=== PATIENT | female | born 1955 | race Caucasian/White ===

== ENCOUNTER → 2018-10-20 16:59 | Outpatient (CLI) | payer OTHER, SELFPAY ==
[2018-10-20 15:18] VITALS: BMI 28.0
[2018-10-23 13:14] LABS: HPV APTIMA, High Risk Negative (Negative)
== END ==
PROVIDERS: Family Provider Internal Medicine; PCP Internal Medicine; Referring Provider Obstetrics & Gynecology; Visit Provider Obstetrics & Gynecology
DX: Z12.4 Encounter for screening for malignant neoplasm of cervix (principal)
CPT/HCPCS: 87624; 88175; G0145

== ENCOUNTER → 2018-10-26 13:08 | Outpatient (CLI) | payer OTHER, SELFPAY ==
[2018-10-20 15:18] VITALS: BMI 28.0
--- NOTE | 2018-10-26 13:13 | RAD_ITS ---
STUDY: X-RAY - LEFT FOOT CLINICAL: Female, 63 years old. Left-sided foot pain across metatarsals. TECHNIQUE: 3 view(s) of the foot. COMPARISON: None. FINDINGS: There is a posterior calcaneal enthesophyte and plantar calcaneal spur. Tarsal bones have a grossly normal appearance. There are mild degenerative changes of the intertarsal articulations. There is deformity of the first metatarsal that may be the result of previous surgery. The second, third, fourth and fifth metatarsals have a normal appearance. There is degenerative arthrosis of the metatarsophalangeal joint of the hallux . Normal tibial and fibular sesamoid bones. Normal interphalangeal joint of the great toe. Normal phalanges of the great toe. Normal second through fifth metatarsophalangeal joints. Normal interphalangeal joints and phalanges of the lesser toes. The soft tissue structures are unremarkable. There is no demonstrated fracture. RAD/Foot min 3 Views IMPRESSION: 1. Calcaneal spurs. 2. Postoperative changes of the first metatarsal. Electronically Signed: Guillermina Anaya MD at 17:45 EDT , Service support ,
== END ==
PROVIDERS: Family Provider Internal Medicine; PCP Internal Medicine; Referring Provider Internal Medicine; Visit Provider Internal Medicine
DX: M79.672 Pain in left foot (principal)
CPT/HCPCS: 73630

== ENCOUNTER → 2018-11-16 14:33 | Outpatient (CLI) | payer OTHER, SELFPAY ==
[2018-10-20 15:18] VITALS: BMI 28.0
--- NOTE | 2018-11-16 14:37 | BI_ITS ---
MAMMOGRAPHY - BILATERAL SCREENING REASON FOR EXAM: Female, 63 years old. Routine annual screening examination. PERTINENT HISTORY: Aunt with breast cancer. TECHNIQUE: Digital bilateral breast reed (3D mammographic acquisition) in the CC and MLO projections. 2-D mediolateral oblique (MLO) and craniocaudad (CC) views of both breasts were obtained. CAD: Full Field Digital Mammography with Computer Added Detection was performed. COMPARISON: Comparison is made with prior operative examination dated August 02, 2016 and July 27, 2015. FINDINGS: Breast Composition: There are scattered areas of fibroglandular density. There are no dominant masses or suspicious calcifications. Stable small bilateral axillary lymph nodes. No other significant abnormalities are identified. There has been no significant change since the prior study. BI/SCREEN MAMM (CAD) W/REED BILAT IMPRESSION: Stable bilateral screening mammogram. Yearly follow-up mammogram recommended. (A) ASSESSMENT CATEGORY: BIRADS Category 2: Benign. A letter regarding these results will be sent to the patient by the facility within 30 days. Approximately 10% of breast cancers are not detected by mammography. A normal mammogram should not delay biopsy of a clinically suspicious abnormality. [id number] Electronically Signed: Mic Benavides, at 9:20 EDT , Service support ,
== END ==
PROVIDERS: Family Provider Internal Medicine; PCP Internal Medicine; Referring Provider Obstetrics & Gynecology; Visit Provider Obstetrics & Gynecology
DX: Z12.31 Encounter for screening mammogram for malignant neoplasm of breast (principal)
CPT/HCPCS: 77063; 77067

== ENCOUNTER → 2018-11-30 | Outpatient (CLI) | payer OTHER, SELFPAY ==
[2018-10-20 15:18] VITALS: BMI 28.0
--- NOTE | 2018-11-30 08:15 | RAD_ITS ---
STUDY: AIR-CONTRAST UPPER GI SERIES AND SMALL BOWEL FOLLOW-THROUGH EXAMINATION. REASON FOR EXAM: Female, 63 years old. Epigastric pain. One year history of diarrhea. FLUOROSCOPY TIME (if supplied): (1:15) minutes/seconds TECHNIQUE: The patient ingested barium. Multiple images of the esophagus, stomach and duodenum were obtained. Following this, a small bowel follow-through examination was performed. COMPARISON: None. FINDINGS: The esophagus is unremarkable. There is no evidence of of esophageal obstruction. No mass lesion is seen. No evidence of gastroesophageal reflux. The stomach and duodenum are unremarkable. No evidence of ulceration. A small bowel follow-through examination was obtained. The transit time is normal. No evidence of intrinsic or extrinsic small bowel disease. The terminal ileum is unremarkable. RAD/Upper GI/w Small Bowel IMPRESSION: Unremarkable examination. Electronically Signed: Mic Benavides, at 14:11 EDT , Service support ,
== END | disposition home or self-care (01) ==
LOC: RAD 08:14
PROVIDERS: Family Provider Internal Medicine; PCP Internal Medicine; Referring Provider Nurse Practitioner; Visit Provider Nurse Practitioner
DX: R10.13 Epigastric pain (principal); R00.1 Bradycardia, unspecified
CPT/HCPCS: 74249; 93225; 93226

== ENCOUNTER → 2018-12-23 20:20 | Outpatient (CLI) | payer OTHER, SELFPAY ==
[2018-10-20 15:18] VITALS: BMI 28.0
== END ==
PROVIDERS: Family Provider Internal Medicine; PCP Internal Medicine; Referring Provider Nurse Practitioner; Visit Provider Nurse Practitioner
DX: G47.10 Hypersomnia, unspecified (principal)
CPT/HCPCS: 95810

== ENCOUNTER → 2019-11-25 | Outpatient (CLI) | payer MEDICARE, SELFPAY ==
[2018-10-20 15:18] VITALS: BMI 28.0
--- NOTE | 2019-11-25 11:28 | BI_ITS ---
MAMMOGRAPHY - BILATERAL SCREENING REASON FOR EXAM: Female, 64 years old. Routine annual screening examination. PERTINENT HISTORY: Aunt with breast cancer. TECHNIQUE: Digital bilateral breast reed (3D mammographic acquisition) in the CC and MLO projections. 2-D mediolateral oblique (MLO) and craniocaudad (CC) views of both breasts were obtained. CAD: Full Field Digital Mammography with Computer Added Detection was performed. COMPARISON: Comparison is made with prior study dated November 16, 2018 and January 11, 2011. FINDINGS: Breast Composition: There are scattered areas of fibroglandular density. There are no dominant masses or suspicious calcifications. Stable benign-appearing bilateral axillary lymph nodes. No other significant abnormalities are identified. There has been no significant change since the prior study. BI/SCREEN MAMM (CAD) W/REED BILAT IMPRESSION: Stable bilateral screening mammogram. Yearly follow-up mammogram recommended. (A) ASSESSMENT CATEGORY: BIRADS Category 2: Benign. A letter regarding these results will be sent to the patient by the facility within 30 days. Approximately 10% of breast cancers are not detected by mammography. A normal mammogram should not delay biopsy of a clinically suspicious abnormality. [id number] Electronically Signed: Mic Benavides, at 12:49 EDT , Service support ,
== END | disposition home or self-care (01) ==
LOC: OPBI 11:28
PROVIDERS: PCP Internal Medicine; Referring Provider Obstetrics & Gynecology; Visit Provider Obstetrics & Gynecology
DX: Z12.31 Encounter for screening mammogram for malignant neoplasm of breast (principal)
CPT/HCPCS: 77063; 77067

== ENCOUNTER 2020-06-02 05:45 | Day surgery (SDC) | payer MEDICARE, SELFPAY ==
[2018-10-20 15:18] VITALS: BMI 28.0
[2020-06-02 06:10] VITALS: BP 120/80; PULSE 60; RESP 16; TEMP 36.6; O2SAT 98; BMI 30.2
[2020-06-02] MEDS: Lidocaine 1% (20 ml mdv) 20 ML Vial (07:26)
[2020-06-02] MEDS: Bupivacaine Mpf 0.5% 30 ML VIAL (07:26)
--- NOTE | 2020-06-02 08:05 | PRO.PCM_ITS ---
Procedure Report Date of Procedure: 06/02/20 Preoperative diagnosis: Right thumb and ring finger triggering Postoperative diagnosis: Same Operation: Release A1 davie right thumb and ring trigger finger Surgeon: Dr. Ming Anaya Grades 1 [employer] 5 Teacher: None Anesthesia: Local Complications: None EBL: Minimal Indications for surgery: Patient has been diagnosed with involved trigger fingers. Due to persistent symptoms despite adequate nonoperative treatment they wish to have surgery. Appropriate informed consent was obtained and signed. Findings: Patient had stenosis involving the A1 davie over the flexor tendon at the involved digit. They underwent complete release of the A1 davie. Triggering was no longer present actively or passively Procedure: After obtaining appropriate informed consent patient was taken to the OR. Patient was transferred to the OR table. Patient was given a local anesthetic at the involved finger sites with a combination of 1% lidocaine and quarter percent Marcaine. A total of 14 cc was ultimately utilized between the involved fingers. Well-padded tourniquet was applied to the operative upper extremity. Limb was exsanguinated. Tourniquet applied to 250 mmHg. 1-1.5 cm transverse incision was made over the proximal aspect of the A1 davie of the involved digit. Dissection through skin subcutaneous tissue brought me down onto the flexor tendon sheath. Proximal extent of the A1 davie was identified. Knife and scissors were used to fully release the A1 davie. Fibrinous tissue proximal to the site was also released under direct visualization. Once this was done flexor tendon was identified to move freely through the site. Patient actively and passively flexed and extended the involved digit without triggering. Tourniquet was let down. Bleeding controlled with cautery. Wound was thoroughly irrigated. Skin edges reapproximated with a 5-0 nylon. Sterile bandage was applied. Right thumb and ring finger treated in above fashion Patient was taken the operating room to recovery room. Patient will be discharged. Ice and elevation. Appropriate pain medication prescribed. This note was generated with [employer] dictation software. It may contain incorrect words, spelling, and punctuation that were not noted in checking the note before signing.
[2020-06-02 08:15] VITALS: BP 134/89; PULSE 58; RESP 16; TEMP 36.2; O2SAT 100
== END 2020-06-02 08:33 | disposition home or self-care (01) ==
LOC: SDC 05:45 → AC 05:46
PROVIDERS: PCP Internal Medicine; Referring Provider Orthopaedic Surgery; Visit Provider Orthopaedic Surgery
PROC: (CPT 26055; principal; 2020-06-02 07:15)
DX: M65.311 Trigger thumb, right thumb (principal); M65.341 Trigger finger, right ring finger; E66.3 Overweight; Z68.28 Body mass index [BMI] 28.0-28.9, adult; Z20.828 Contact with and (suspected) exposure to other viral communicable diseases
CPT/HCPCS: 26055 ×2; 87426; C9803; J7120

== ENCOUNTER → 2020-12-04 09:48 | Outpatient (CLI) | payer MEDICARE, SELFPAY ==
--- NOTE | 2020-12-04 09:51 | BI_ITS ---
MAMMOGRAPHY - BILATERAL SCREENING REASON FOR EXAM: Female, 65 years old. Routine annual screening examination. PERTINENT HISTORY: Aunt with breast cancer. TECHNIQUE: Digital bilateral breast reed (3D mammographic acquisition) in the CC and MLO projections. 2-D mediolateral oblique (MLO) and craniocaudad (CC) views of both breasts were obtained. CAD: Full Field Digital Mammography with Computer Added Detection was performed. COMPARISON: Comparison is made with prior study dated 11/25/2019 and 11/16/2018. FINDINGS: Breast Composition: The breasts are almost entirely fatty. There are no dominant masses or suspicious calcifications. Stable benign-appearing bilateral axillary lymph nodes. No other significant abnormalities are identified. There has been no significant change since the prior study. BI/SCRN MAMM (CAD)W/REED BILAT IMPRESSION: Stable bilateral screening mammogram. Yearly follow-up mammogram recommended. (A) ASSESSMENT CATEGORY: BIRADS Category 2: Benign. A letter regarding these results will be sent to the patient by the facility within 30 days. Approximately 10% of breast cancers are not detected by mammography. A normal mammogram should not delay biopsy of a clinically suspicious abnormality. [id number] Electronically Signed: Mic Benavides MD at 11:08 EDT , Service support ,
== END ==
PROVIDERS: PCP Internal Medicine; Referring Provider Obstetrics & Gynecology; Visit Provider Obstetrics & Gynecology
DX: Z12.31 Encounter for screening mammogram for malignant neoplasm of breast (principal)
CPT/HCPCS: 77063; 77067

== ENCOUNTER → 2021-03-30 09:54 | Outpatient (CLI) | payer MEDICARE, SELFPAY ==
--- NOTE | 2021-03-30 09:55 | ECHOD_ITS ---
Reason For Study: ABN EKG Procedure This was a 2D Doppler, Color Flow transthoracic echocardiogram. Exam performed in department. Left Ventricle Normal LV size. Left ventricular systolic function is normal. The estimated ejection fraction is 60 %. No regional wall motion abnormalities noted. Right Ventricle Normal RV size. Normal systolic function. Atria Normal left atrium. Normal right atrium. Mitral Valve Normal mitral valve. Mild (1+) eccentric mitral valve insufficiency. Tricuspid Valve Normal tricuspid valve. Aortic Valve Trisinus/trileaflet aortic valve. Pulmonic Valve Normal pulmonic valve. Great Vessels Normal aortic root. The pulmonary artery is normal size. Normal inferior vena cava. Pericardium/Pleural No pericardial effusion. MMode/2D Measurements & Calculations LVIDd: 4.9 cm IVSd: 0.96 cm Ao root diam: 2.9 cm LVIDs: 3.3 cm LVPWd: 1.1 cm RVDd: 3.5 cm FS: 32.2 % LAV(MOD-bp): 53.1 ml LA A4 area: 14.8 cm2 LA dimension(2D): 3.0 cm LAV(MOD-bp) Indexed: 29.9 ml/m2 LAV(MOD-sp2): 54.8 ml LAV(MOD-sp4): 41.5 ml RA A4 area: 15.3 cm2 Doppler Measurements & Calculations MV E max kolby: 54.9 cm/sec Lat Peak E' Kolby: 6.4 cm/sec Med Peak E' Kolby: 5.8 cm/sec MV A max kolby: 44.9 cm/sec E/E' lat: 8.6 E/E' med: 9.5 MV E/A: 1.2 Ao V2 max: 125.6 cm/sec LV V1 max: 107.2 cm/sec PA V2 max: 98.2 cm/sec Ao max P.3 mmHg LV V1 max P.6 mmHg ECHO/Echo Complete Interpretation Summary Normal LV size. Left ventricular systolic function is normal. The estimated ejection fraction is 60 %. Structurally normal valves. Ordering Physician: Mikala Vallecillo Referring Physician: Mikala Vallecillo Performed By: Kayley Rowe RDCS, RVT
== END ==
PROVIDERS: PCP Internal Medicine; Referring Provider Internal Medicine; Visit Provider Internal Medicine
DX: R94.31 Abnormal electrocardiogram [ECG] [EKG] (principal)
CPT/HCPCS: 93306

== ENCOUNTER → 2021-12-13 | Outpatient (CLI) | payer MEDICARE, SELFPAY ==
--- NOTE | 2021-12-13 10:34 | BI_ITS ---
MAMMOGRAPHY - BILATERAL SCREENING REASON FOR EXAM: Female, 66 years old. Routine annual screening examination. PERTINENT HISTORY: Aunt with breast cancer. TECHNIQUE: Digital bilateral breast reed (3D mammographic acquisition) in the CC and MLO projections. 2-D mediolateral oblique (MLO) and craniocaudad (CC) views of both breasts were obtained. CAD: Full Field Digital Mammography with Computer Added Detection was performed. COMPARISON: Comparison is made with prior study dated 08/06/2020 and 11/25/2019. FINDINGS: Breast Composition: There are scattered areas of fibroglandular density. There are no dominant masses or suspicious calcifications. Stable small benign-appearing bilateral axillary lymph nodes. No other significant abnormalities are identified. There has been no significant change since the prior study. BI/SCRN MAMM (CAD)W/REED BILAT IMPRESSION: Stable bilateral screening mammogram. Yearly follow-up mammogram recommended. (A) ASSESSMENT CATEGORY: BIRADS Category 2: Benign. A letter regarding these results will be sent to the patient by the facility within 30 days. Approximately 10% of breast cancers are not detected by mammography. A normal mammogram should not delay biopsy of a clinically suspicious abnormality. [id number] Electronically Signed: Mic Benavides MD at 11:54 EDT ,
== END | disposition home or self-care (01) ==
LOC: OPBI 10:32
PROVIDERS: PCP Internal Medicine; Visit Provider Obstetrics & Gynecology
DX: Z12.31 Encounter for screening mammogram for malignant neoplasm of breast (principal)
CPT/HCPCS: 77063; 77067

== ENCOUNTER → 2022-05-13 | Outpatient (CLI) | payer MEDICARE, SELFPAY ==
[2022-05-13 18:16] LABS: Absolute Lymphocyte Count 1.14 X10^3/uL (0.83-4.51); Absolute Neutrophil Count 1.8 X10^3/uL (2.0-7.7); Basophil# 0.03 X10^3/uL; Basophil% 0.9 % (0-1); Eosinophil# 0.08 X10^3/uL; Eosinophils% 2.3 % (0-5); Hematocrit 39.1 % (37-47); Hemoglobin 12.7 g/dL (12.0-15.0); Lymphocyte # 1.14 X10^3/ul (0.83-4.51); Lymphocyte % 32.9 % (19-41); Mean Corp Hgb Conc 32.5 g/dL (32-36); Mean Corpuscular Hgb 28.5 pg (27.0-32.0); Mean Corpuscular Volume 87.7 fL (81-99); Mean Platelet Vol. 9.8 fl (6.2-12.0); Monocyte# 0.39 X10^3/uL; Monocyte% 11.3 % (0-10); NRBC Flagged by Analyzer 0 % (0-5); Neutrophil # 1.81 X10^3/uL (2.7-7.7); Neutrophil % 52.3 % (47-70); Platelet Count 296 K/mm3 (150-450); RBC Distribution Width CV 12.9 % (11.6-14.6); RBC Distribution Width SD 41.2 fl (35.1-43.9); Red Blood Count 4.46 M/mm3 (4.2-5.4); White Blood Count 3.5 K/mm3 (4.4-11.0)
== END | disposition home or self-care (01) ==
LOC: MTLAB 16:31
PROVIDERS: PCP Internal Medicine; Referring Provider Nurse Practitioner Family; Visit Provider Nurse Practitioner Family
DX: R10.13 Epigastric pain (principal)
CPT/HCPCS: 36415; 85025

== ENCOUNTER → 2022-05-14 | Outpatient (CLI) | payer MEDICARE, SELFPAY ==
--- NOTE | 2022-05-14 10:54 | US_ITS ---
STUDY: ABDOMINAL ULTRASOUND - RIGHT UPPER QUADRANT REASON FOR VISIT: Female, 66 years old RUQ PAIN TECHNIQUE: Ultrasound evaluation of the right upper quadrant was performed with real-time and static haynes-scale imaging. TECHNICAL QUALITY: Adequate. COMPARISON: None. FINDINGS: Liver: The liver measures 13.7 cm. There is normal echogenicity of the liver. The bile ducts are within normal limits. There is hepatic color flow. The direction of portal flow is hepatopetal. There is no demonstrated mass lesion. Gallbladder: Normal distended gallbladder. The gallbladder wall measures 2.0 mm. There is a negative sonographic Encarnacion''s sign. There is no pericholecystic fluid. There are no gallstones. Common Bile Duct (C.B.D.): The common bile duct measures 4.0 mm. Pancreas: Normal size of the head, body and tail of the pancreas. There is normal echogenicity of the pancreas. There is no demonstrated pancreatic mass or cyst. Right Kidney: Normal size of the right kidney. The right kidney measures 10.2 cm x 5 cm x 3.6 cm. Normal renal cortex. The right cortex measures 1.2 cm. There is no demonstrated renal mass or cyst. There is no right hydronephrosis. US/Abdomen Limited IMPRESSION: Normal right upper quadrant ultrasound examination. Electronically Signed: Mic Benavides MD at 12:41 EST ,
== END | disposition home or self-care (01) ==
LOC: US 10:52
PROVIDERS: PCP Internal Medicine; Referring Provider Nurse Practitioner Family; Visit Provider Nurse Practitioner Family
DX: R10.13 Epigastric pain (principal)
CPT/HCPCS: 76705

== ENCOUNTER → 2022-12-17 | Outpatient (CLI) | payer MEDICARE, SELFPAY ==
--- NOTE | 2022-12-17 09:38 | BI_ITS ---
MAMMOGRAPHY - BILATERAL SCREENING REASON FOR EXAM: Female, 67 years old. Routine annual screening examination. PERTINENT HISTORY: Aunt with breast cancer. TECHNIQUE: Digital bilateral breast reed (3D mammographic acquisition) in the CC and MLO projections. 2-D mediolateral oblique (MLO) and craniocaudad (CC) views of both breasts were obtained. CAD: Full Field Digital Mammography with Computer Added Detection was performed. COMPARISON: Mammogram from 12/13/2021, 12/04/2020. FINDINGS: Breast Composition: There are scattered areas of fibroglandular density. There are no dominant masses or suspicious calcifications. Stable small benign-appearing bilateral axillary lymph nodes. No other significant abnormalities are identified. There has been no significant change since the prior study. BI/SCRN MAMM (CAD)W/REED BILAT IMPRESSION: Stable bilateral screening mammogram. Yearly follow-up mammogram recommended. (A) ASSESSMENT CATEGORY: BIRADS Category 2: Benign. A letter regarding these results will be sent to the patient by the facility within 30 days. Approximately 10% of breast cancers are not detected by mammography. A normal mammogram should not delay biopsy of a clinically suspicious abnormality. Electronically Signed: Sy Pratt DO at 15:40 EDT ,
--- NOTE | 2022-12-17 09:47 | BD_ITS ---
STUDY: DUAL ENERGY X-RAY ABSORPTIOMETRY / DXA REASON FOR EXAM: Female, 67 years old. 627.8Menopausal postmenopausal BONE DENSITY REASON FOR EXAM TECHNIQUE: Bone Mineral Density (BMD) measurements of lumbar spine and bilateral hips were obtained. COMPARISON: None. FINDINGS: Lumbar Spine (L1-L4): g/cm2 (0.782) / T-score (-2.1) / Z-score (-0.2) Findings are suggestive of osteopenia with a high fracture risk. Left Femur Total: g/cm2 (0.680) / T-score (-2.2) / Z-score (-0.7) Left Femoral Neck: g/cm2 (0.687) / T-score (-1.5) / Z-score (0.2) Right Femur Total: g/cm2 (0.665) / T-score (-2.3) / Z-score (-0.9) Right Femoral Neck: g/cm2 (0.675) / T-score (-1.6) / Z-score (0.1) BD/Dexa Bone Density Study IMPRESSION: The patient is considered osteopenic as outlined below according to World Sal Organization (WHO) criteria with a high fracture risk. Reference Information: The T-score is the number of standard deviations above or below the standard which is normal for young adults at their peak bone mineral density. The World Health Organization (WHO) interprets the T-scores as follows: Above -1 Normal bone density Between -1 and -2.5 Osteopenia Equal to / or below -2.5 Osteoporosis As a practical clinical guideline, osteopenia may be graded as follows: Mild -1 through -1.5 Moderate -1.6 through -2.0 Severe -2.1 through -2.4 The Z-score is the number of standard deviations above or below age-matched controls. A Z-score of less than -1.5 would be considered abnormal. References: 1. NIH Osteoporosis and Related Bone Diseases www osteo.org 2. International Society for Clinical Densitometry www iscd.org 3. National Osteoporosis Foundation www nof.org Electronically Signed: Mic Benavides MD at 12:27 EDT ,
== END | disposition home or self-care (01) ==
LOC: OPBD 09:37
PROVIDERS: PCP Internal Medicine; Referring Provider Internal Medicine; Visit Provider Internal Medicine
DX: Z12.31 Encounter for screening mammogram for malignant neoplasm of breast (principal); Z78.0 Asymptomatic menopausal state
CPT/HCPCS: 77063; 77067; 77080

== ENCOUNTER 2023-05-30 12:37 | Emergency (ER) | payer MEDICARE, SELFPAY ==
[2023-05-30 12:39] VITALS: BP 113/89; PULSE 105; RESP 22; TEMP 36.6; O2SAT 98
[2023-05-30 13:09] VITALS: BMI 24.6
--- NOTE | 2023-05-30 13:20 | EX.ED.DYSGE1 ---
HPI History of Present Illness Chief Complaint: Cold Sx Informant: patient Onset/Context/Timing Onset: Weeks (1) Context: Gradual Onset Timing: Continuous Quality: Tightness Location: Chest Worsened by: Nothing Relieved by: Nothing Narrative Narrative: Patient presents with cough and congestion that has been getting worse over the past week. Patient was recently diagnosed with influenza B. Patient was also given a prescription for Tessalon Perles. Patient states she has been taking these with no relief. Patient admits to a headache. Patient states her headache is diffuse. Patient also admits to some tightness in her chest and shortness of breath. Patient states she is coughing up some yellow sputum. Patient also admits to some nausea but denies any vomiting. Patient admits to some diarrhea. Patient admits to a fever of 103.1 at home. Patient states she called her daughter who is a physician and she told her to come to the emergency department for a chest x-ray. [facility] Medical History Depression Home Medications desvenlafaxine succinate 25 mg tablet,extended release 24 hr (Pristiq) 25 mg PO DAILY #30 tabs 02/27/23 [Rx Last Taken Unknown] Allergy/AdvReac Type Severity Reaction Status Date / Time penicillin G Allergy Mild Other Verified 05/30/23 12:38 Sulfa (Sulfonamide Allergy Mild Other Verified 05/30/23 12:38 Antibiotics) Family History Mother Hypertension Aunt Breast cancer Surgical History History of bunionectomy History of carpal tunnel surgery Social History Smoking Status: Never smoker alcohol intake: never substance use type: does not use caffeine: Yes what type of physical activity do you participate in: walking seatbelt use: always do you feel safe at home: Yes additional social history: [employer]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 ROS ROS ED Constitutional Constitutional ED: Reports fever(s); Denies chills Eyes Eyes: Denies blurry vision or change in vision ENT ENT ED: Reports rhinorrhea; Denies sore throat Cardiovascular Cardiovascular: Reports chest pain; Denies palpitations Respiratory/Chest Respiratory/Chest: Reports cough and dyspnea Gastrointestinal Gastrointestinal: Reports diarrhea and nausea; Denies vomiting Genitourinary Genitourinary ED: Denies dysuria or hematuria Musculoskeletal Musculoskeletal: Denies back pain or neck pain Integumentary Denies abscess or rash Neurologic Neurologic: Reports headache(s); Denies weakness Allergic/Immunologic Allergic/Immunologic ED: Denies mouth swelling or urticaria EXAM Physical Exam Const Vital Signs: 05/30/23 12:39 05/30/23 13:09 05/30/23 13:45 Temperature 97.8 F Temperature Source Temporal Pulse Rate 105 H 77 Respiratory Rate 22 H 16 Respiratory Effort Normal Respiratory Pattern Normal Blood Pressure 113/89 H Blood Pressure Mean 97 Pulse Ox 98 Oxygen Delivery Method Room Air Positive well nourished and well developed General Appearance ED: well developed and NAD HEENT Reports moist mucous membranes Neck supple and no JVD Chest Wall inspection of chest normal and palpation of chest normal Resp normal respiratory effort and clear to auscultation bilaterally Cardio regular rate GI non-tender and non-distended Palpation: soft Neuro oriented x3, CN's II-XII intact bilaterally and no sensory deficits noted Sensorium / Orientation: alert Motor Exam: strength 5/5 throughout Psych mental status grossly normal MDM MDM MDM Narrative Medical decision making narrative: Differential diagnosis includes pneumonia, influenza, dehydration, electrolyte abnormality, and pneumothorax. Chest x-ray will be obtained to assess for pneumonia and pneumothorax. CBC will be obtained to assess for leukocytosis and anemia. Basic metabolic profile will be obtained to assess for electrolyte abnormality and renal function. Lab Data Attestation: I reviewed the patient's lab results. Lab results narrative: CBC was reviewed. There is mild leukopenia of 2.0. The remainder was within normal limits. Basic metabolic profile was reviewed and was within normal limits. D-dimer was reviewed and was slightly elevated at 0.70. Labs: Laboratory Results - last 24 hr 05/30/23 13:48 WBC 2.0 L RBC 4.87 Hgb 13.4 Hct 41.1 MCV 84.4 MCH 27.5 MCHC 32.6 RDW Std Deviation 38.0 RDW Coeff of Eva 12.6 Plt Count 194 MPV 9.2 Immature Gran % (Auto) 0.500 Neut % (Auto) 39.7 L Lymph % (Auto) 42.2 H [place] % (Auto) 16.1 H Eos % (Auto) 0.5 Baso % (Auto) 1.0 Absolute Neuts (auto) 0.8 L Absolute Lymphs (auto) 0.84 Nucleated RBC % 0 Differential Comment COMMENT D-Dimer Quant (PE/DVT) 0.70 H* Sodium 136 Potassium 3.7 Chloride 104 Carbon Dioxide 26.0 Anion Gap 6 BUN 9 Creatinine 0.67 Estim Creat Clear Calc 48.45 Est GFR (MDRD) Af Amer 112 Est GFR (MDRD) Non-Af 92 BUN/Creatinine Ratio 13.4 Glucose 86 Calcium 8.4 L Radiography Diagnostic Testing: Clinical Impression(s) from Imaging Studies Chest X-Ray 05/30/23 13:50 IMPRESSION: Hyperinflation. The lungs are clear. Electronically Signed: Mic Benavides MD at 14:14 EST , Chest CTA 05/30/23 14:41 IMPRESSION: Normal CTA chest examination, without a demonstrated pulmonary embolism or arterial dissection. Electronically Signed: Mic Benavides MD at 15:07 EST , PA and lateral chest x-ray was obtained. There are 2 views. On my independent interpretation, lung sy are clear. There is normal cardiac silhouette. Bony thorax is normal. There is no acute process noted. Radiologist also interpreted the x-ray and agrees. Because of the elevated D-dimer, CTA of the chest was obtained. There is no evidence of pulmonary embolism or aortic dissection. There is no acute cardiopulmonary process noted. This was interpreted by the radiologist and was also independently reviewed by myself. Treatment and Re-Evaluation :: Patient was given a DuoNeb aerosol here. Patient was given IV fluids. Patient was feeling better on reevaluation. Patient was given a prescription for albuterol inhaler. Patient was instructed to continue with Tylenol and ibuprofen as needed for any aches or fevers. Patient was instructed to follow-up with her primary care physician in 5 to 7 days. Patient understood and was agreeable with the plan. All questions were answered. Discharge Plan Triage Chief Complaint: Cold Sx ED Provider: Cam Albrecht Dx/Rx/DC Orders Clinical Impression: Influenza B, Dyspnea Instructions: ED Influenza (Adult) Prescriptions: No Action desvenlafaxine succinate [Pristiq] 25 mg tablet extended release 24 hr 25 mg PO DAILY Qty: 30 12RF Primary Care Provider: Mikala Vallecillo Referrals: Mikala Vallecillo DO [Primary Care Provider] - 3-5 Days Disposition Disposition: Home, Self Care
[2023-05-30] MEDS: Ipratropium/Albuterol Sulfate 3 ML AMPUL.NEB INHALATION (13:43)
[2023-05-30 13:45] VITALS: PULSE 77; RESP 16
[2023-05-30] MEDS: 0.9% Normal Saline (1000mL) 1,000 ML 1000 ML IV (13:50)
--- NOTE | 2023-05-30 13:50 | RAD_ITS ---
STUDY: X-RAY CHEST REASON FOR EXAM: Female, 67 years old. Cough TECHNIQUE: PA and lateral views of the chest. COMPARISON: None. FINDINGS: Hyperinflation. The lungs are clear. There is no demonstrated pleural abnormality. Normal size heart. Normal mediastinum and more. Normal visualized pulmonary arteries. There is atherosclerotic calcification of the aortic arch with tortuosity. There are diffuse degenerative changes of the visualized thoracic spine. Increased kyphosis. Normal visualized ribs, clavicles, and shoulders. There is no demonstrated abnormality of the visualized soft tissue structures of the upper abdomen. RAD/Chest PA and Lateral IMPRESSION: Hyperinflation. The lungs are clear. Electronically Signed: Mic Benavides MD at 14:14 EST ,
[2023-05-30 14:05] LABS: Absolute Lymphocyte Count 0.84 X10^3/uL (0.83-4.51); Absolute Neutrophil Count 0.8 X10^3/uL (2.0-7.7); Basophil# 0.02 X10^3/uL; Eosinophil# 0.01 X10^3/uL; Eosinophils% 0.5 % (0-5); Hematocrit 41.1 % (37-47); Hemoglobin 13.4 g/dL (12.0-15.0); Lymphocyte # 0.84 X10^3/ul (0.83-4.51); Lymphocyte % 42.2 % (19-41); Mean Corp Hgb Conc 32.6 g/dL (32-36); Mean Corpuscular Hgb 27.5 pg (27.0-32.0); Mean Corpuscular Volume 84.4 fL (81-99); Mean Platelet Vol. 9.2 fl (6.2-12.0); Monocyte# 0.32 X10^3/uL; Monocyte% 16.1 % (0-10); NRBC Flagged by Analyzer 0 % (0-5); Neutrophil # 0.79 X10^3/uL (2.7-7.7); Neutrophil % 39.7 % (47-70); POSITIVE DIFFERENTIAL YES; Platelet Count 194 K/mm3 (150-450); RBC Distribution Width CV 12.6 % (11.6-14.6); Red Blood Count 4.87 M/mm3 (4.2-5.4)
[2023-05-30 14:14] LABS: Anion Gap 6 (5-15); BUN 9 mg/dL (7-18); BUN/Creat Ratio 13.4 RATIO (10-20); Calcium,Total 8.4 mg/dL (8.5-10.1); Chloride 104 mmol/L (98-107); Creatinine, Serum 0.67 mg/dL (0.55-1.02); EST Glomerular Filtration Rate 92 mL/min (>60); Est Glom Filt Rate - Afr Amer 112 mL/min (>60); Estimated Creatinine Clearance 48.45 ml/min; Glucose 86 mg/dL (74-106); Potassium 3.7 mmol/L (3.5-5.1); Sodium Level 136 mmol/L (136-145)
[2023-05-30 14:16] LABS: Differential Indicated SCAN CRITERIA MET
--- NOTE | 2023-05-30 14:41 | CT_ITS ---
STUDY: CTA CHEST REASON FOR EXAM: Female, 67 years old. Elevated D-dimer RADIATION DOSAGE (If Supplied By Facility): CTDIvol = ( 6.34 ) mGy, DLP = ( 194.85 ) mGycm TECHNIQUE: The examination was performed with the intravenous administration of IV 100mL Isovue-370. Post-processing of the angiographic images was performed, with multiplanar reformation and 3D reconstruction. Individualized dose optimization techniques were used for this CT. COMPARISON: Comparison is made with prior chest radiograph done earlier today. FINDINGS: Normal enhancement of the main pulmonary artery and right and left pulmonary arteries. Normal enhancement of the bilateral peripheral pulmonary arteries. There is no demonstrated pulmonary embolism. Normal thoracic aorta and visualized great vessels. There is no demonstrated aortic dissection. Normal heart and pericardium. Normal mediastinum. Normal hilar regions. Normal visualized trachea and bronchi. The lungs are well expanded. Normal pulmonary parenchyma. Normal pleura. Normal chest wall structures. There are degenerative changes of thoracic spine. Calcified splenic granulomas. CT/CTA Chest W/WO Contrast IMPRESSION: Normal CTA chest examination, without a demonstrated pulmonary embolism or arterial dissection. Electronically Signed: Mic Benavides MD at 15:07 EST ,
[2023-05-30 15:20] VITALS: BP 114/80; PULSE 92; RESP 16; O2SAT 96
== END 2023-05-30 15:24 | disposition home or self-care (01) ==
PROVIDERS: Emergency Provider Emergency Medicine; PCP Internal Medicine; Visit Provider Emergency Medicine
DX: J10.1 Influenza due to other identified influenza virus with other respiratory manifestations (principal); R19.7 Diarrhea, unspecified; R11.0 Nausea; R51.9 Headache, unspecified
CPT/HCPCS: 71046; 71275; 80048; 85025; 85379; 94640; 96360; 99283; J7030; Q9967

== ENCOUNTER → 2023-09-24 | Outpatient (CLI) | payer MEDICARE, SELFPAY ==
[2023-09-24 11:11] LABS: Erythrocyte Sedimentation Rate 2 mm/hr (0-30)
[2023-09-24 11:13] LABS: Absolute Lymphocyte Count 0.83 X10^3/uL (0.83-4.51); Absolute Neutrophil Count 1.7 X10^3/uL (2.0-7.7); Basophil# 0.04 X10^3/uL; Basophil% 1.3 % (0-1); Eosinophil# 0.08 X10^3/uL; Eosinophils% 2.6 % (0-5); Hematocrit 40.7 % (37-47); Hemoglobin 12.7 g/dL (12.0-15.0); Lymphocyte # 0.83 X10^3/ul (0.83-4.51); Lymphocyte % 27.5 % (19-41); Mean Corp Hgb Conc 31.2 g/dL (32-36); Mean Corpuscular Hgb 27.3 pg (27.0-32.0); Mean Corpuscular Volume 87.5 fL (81-99); Mean Platelet Vol. 9.6 fl (6.2-12.0); Monocyte# 0.32 X10^3/uL; Monocyte% 10.6 % (0-10); NRBC Flagged by Analyzer 0 % (0-5); Neutrophil # 1.74 X10^3/uL (2.7-7.7); Neutrophil % 57.7 % (47-70); Platelet Count 321 K/mm3 (150-450); RBC Distribution Width CV 13.5 % (11.6-14.6); RBC Distribution Width SD 43.4 fl (35.1-43.9); Red Blood Count 4.65 M/mm3 (4.2-5.4)
[2023-09-24 11:49] LABS: AST(SGOT) 26 U/L (15-37); Alanine Aminotransfer ALT/SGPT 24 U/L (13-56); Albumin, Serum 3.7 g/dL (3.2-5.0); Alkaline Phosphatase 76 U/L (45-117); Anion Gap 4 (5-15); BUN 12 mg/dL (7-18); BUN/Creat Ratio 15.4 RATIO (10-20); Calcium,Total 9.2 mg/dL (8.5-10.1); Chloride 106 mmol/L (98-107); Creatinine, Serum 0.78 mg/dL (0.55-1.02); EST Glomerular Filtration Rate 78 mL/min (>60); Est Glom Filt Rate - Afr Amer 94 mL/min (>60); Globulin 3.7 g/dL (2.2-4.2); Glucose 45 mg/dL (74-106); Potassium 3.5 mmol/L (3.5-5.1); Protein, Total 7.4 g/dL (6.4-8.2); Sodium Level 139 mmol/L (136-145)
== END | disposition home or self-care (01) ==
LOC: LAB 10:10
PROVIDERS: PCP Internal Medicine; Referring Provider Internal Medicine Gastroenterology; Visit Provider Internal Medicine Gastroenterology
DX: R19.7 Diarrhea, unspecified (principal); R19.4 Change in bowel habit
CPT/HCPCS: 36415; 80053; 85025; 85652

== ENCOUNTER → 2024-03-02 | Outpatient (CLI) | payer MEDICARE, SELFPAY ==
--- NOTE | 2024-03-02 10:16 | BI_ITS ---
MAMMOGRAPHY - BILATERAL SCREENING REASON FOR EXAM: Female, 68 years old. Routine annual screening examination. PERTINENT HISTORY: Aunt with breast cancer. TECHNIQUE: Digital bilateral breast reed (3D mammographic acquisition) in the CC and MLO projections. 2-D mediolateral oblique (MLO) and craniocaudad (CC) views of both breasts were obtained. CAD: Full Field Digital Mammography with Computer Added Detection was performed. COMPARISON: Comparison is made with prior study dated December 17, 2022 and December 13, 2021. FINDINGS: Breast Composition: There are scattered areas of fibroglandular density. There are no dominant masses or suspicious calcifications. Stable small benign-appearing bilateral axillary lymph nodes. No other significant abnormalities are identified. There has been no significant change since the prior study. BI/SCRN MAMM (CAD)W/REED BILAT IMPRESSION: Stable bilateral screening mammogram. Yearly follow-up mammogram recommended. (A) ASSESSMENT CATEGORY: BIRADS Category 2: Benign. A letter regarding these results will be sent to the patient by the facility within 30 days. Approximately 10% of breast cancers are not detected by mammography. A normal mammogram should not delay biopsy of a clinically suspicious abnormality. [id number] Electronically Signed: Mic Benavides MD at 13:51 EDT ,
== END | disposition home or self-care (01) ==
LOC: OPBI 10:16
PROVIDERS: PCP Internal Medicine; Referring Provider Obstetrics & Gynecology; Visit Provider Obstetrics & Gynecology
DX: Z12.31 Encounter for screening mammogram for malignant neoplasm of breast (principal)
CPT/HCPCS: 77063; 77067

== ENCOUNTER → 2024-06-22 | Outpatient (CLI) | payer MEDICARE, SELFPAY ==
--- NOTE | 2024-06-22 13:02 | US_ITS ---
HISTORY: Acute pain of left Knee M25.562 TECHNIQUE: Routine and color duplex imaging of the left posterior knee. 24 images. Comparison radiograph 06/07/2024 FINDINGS: Mild ill-defined fluid in the medial aspect of the left posterior knee. US/Ext Non Vasc Limited/Soft Tiss IMPRESSION: Mild ill-defined fluid in the medial aspect of the left posterior knee, question ruptured Lock''s cyst. Electronically Signed: Arleth Raza MD at 13:58 EST ,
== END | disposition home or self-care (01) ==
PROVIDERS: PCP Internal Medicine; Referring Provider Internal Medicine; Visit Provider Internal Medicine
DX: M25.562 Pain in left knee (principal)
CPT/HCPCS: 76882

== ENCOUNTER 2024-08-19 11:53 | Day surgery (SDC) | payer MEDICARE, SELFPAY ==
--- NOTE | 2024-08-06 09:03 | EKG12_ITS ---
Test Reason : PREOP Blood Pressure : */* mmHG Vent. Rate : 69 BPM Atrial Rate : 69 BPM P-R Int : 200 ms QRS Dur : 106 ms QT Int : 432 ms P-R-T Axes : 70 -24 33 degrees QTcB Int : 462 ms Sinus rhythm with frequent Premature ventricular complexes in a pattern of bigeminy Incomplete right bundle branch block Borderline ECG Confirmed by ARGENTINA RAMÍREZ, ELIER ([id number]), index editor MARCUS GARCIA ([id number]) on 08/07/2024 7:10:36 AM Referred By: Bucky Trevino Confirmed By: ELIER ELAINE MD
[2024-08-06 10:05] LABS: Absolute Lymphocyte Count 1.18 X10^3/uL (0.83-4.51); Absolute Neutrophil Count 1.7 X10^3/uL (2.0-7.7); Basophil# 0.03 X10^3/uL; Basophil% 0.9 % (0-1); Eosinophil# 0.08 X10^3/uL; Eosinophils% 2.4 % (0-5); Hematocrit 38.4 % (37-47); Hemoglobin 12.6 g/dL (12.0-15.0); Lymphocyte # 1.18 X10^3/ul (0.83-4.51); Mean Corp Hgb Conc 32.8 g/dL (32-36); Mean Corpuscular Hgb 28.2 pg (27.0-32.0); Mean Corpuscular Volume 85.9 fL (81-99); Mean Platelet Vol. 9.6 fl (6.2-12.0); Monocyte# 0.38 X10^3/uL; Monocyte% 11.3 % (0-10); NRBC Flagged by Analyzer 0 % (0-5); Neutrophil % 50.4 % (47-70); Platelet Count 294 K/mm3 (150-450); RBC Distribution Width CV 13.1 % (11.6-14.6); RBC Distribution Width SD 40.6 fl (35.1-43.9); Red Blood Count 4.47 M/mm3 (4.2-5.4); White Blood Count 3.4 K/mm3 (4.4-11.0)
[2024-08-06 10:15] LABS: Anion Gap 6 (5-15); BUN 17 mg/dL (7-18); Chloride 104 mmol/L (98-107); Creatinine, Serum 0.89 mg/dL (0.55-1.02); EST Glomerular Filtration Rate 66 mL/min (>60); Est Glom Filt Rate - Afr Amer 80 mL/min (>60); Glucose 84 mg/dL (74-106); Potassium 3.7 mmol/L (3.5-5.1); Sodium Level 138 mmol/L (136-145)
--- NOTE | 2024-08-10 16:32 | PAT.ANESEVAL ---
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 When Was Last Pacemaker Check QUESTION #4 FULL TEXT: You/Your Family Experience fever (hyperthermia) with Anesthesia Last Oral Intake Last Oral intake: Last Oral Intake NPO since Meds taken in AM with sips of water? 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 Female Yes 08/10/24 10:22 HX of Motion Sickness Yes 08/10/24 10:22 HX of N/V After Surgery No 08/10/24 10:22 Non-Smoker Yes 08/10/24 10:22 Duration of Surgery greater Yes 08/10/24 10:22 than 60 minutes Number of Risk Factors 4 08/10/24 10:22 PONV Score Severe Risk 08/10/24 10:22 Height & Weight Height & Weight: Anesthesia: Height & Weight Height 5 ft 5 in 06/07/24 09:57 Respiratory Assessment Respiratory Assessment - plastic machine operator: Respiratory Tract Infection Hx - plastic machine operator Hx Respiratory Tract Infection No 08/10/24 10:22 STOP Sleep Apnea STOP Sleep Apnea - plastic machine operator: STOP Sleep Apnea - plastic machine operator Hx Hypertension No 08/10/24 10:22 Hx Sleep Apnea No 08/10/24 10:22 CPAP BIPAP Do you snore loudly (louder No 08/10/24 10:22 than talking or can be heard Do you often feel tired/ No 08/10/24 10:22 fatigued/ sleepy during daytime? Has anyone observed you stop No 08/10/24 10:22 breathing during sleep? STOP Results Negative 08/10/24 10:22 QUESTION #5 FULL TEXT : Do you snore loudly (louder than talking or can be heard through closed doors)? 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 Specify any problems Hx of Preganancy in last 3 No 08/10/24 10:22 Months Nurse Filling Out Transfusion VCHRISTIN 08/10/24 10:22 & Questions: Date: 08/10/24 08/10/24 10:22 Time: 10:23 08/10/24 10:22 Patient unable to answer at this time (ie. confused, unrespo /Reproduction History /Reproductive History - plastic machine operator: /Reproductive Hx- plastic machine operator Hx Now No 08/10/24 10:22 Gestational Age (in weeks): EDC: Hx Hx Para Hx Section SAB No 08/10/24 10:22 [facility] Medical History (Updated 08/10/24 @ 10:22 by Marcella Saavedra) Wears glasses Arthritis Restless legs Migraine headache History of IBS Non-smoker History of pain when walking History of edema History of stress test History of echocardiogram History of trigger finger Depression Home Medications ?Medication ?Instructions ?Recorded ?Last Taken ?Type desvenlafaxine succinate 25 mg 25 mg PO DAILY #30 TABLETS 03/29/24 Unknown Rx tablet,extended release 24 hr acetaminophen 500 mg tablet 1,000 mg PO Q6H PRN pain 08/10/24 Unknown History (Tylenol Extra Strength) tramadol 50 mg tablet 50 mg PO Q6H PRN PRN pain 08/10/24 Unknown History Allergy/AdvReac Type Severity Reaction Status Date / Time penicillin G Allergy Mild Other Verified 08/10/24 10:12 Sulfa (Sulfonamide Allergy Mild Other Verified 08/10/24 10:12 Antibiotics) Family History Mother Hypertension Aunt Breast cancer Surgical History (Updated 08/10/24 @ 10:22 by Marcella Saavedra) Hx of release of tendon History of bunionectomy History of carpal tunnel surgery Social History Smoking Status: Never smoker alcohol intake: never substance use type: does not use caffeine: Yes what type of physical activity do you participate in: walking seatbelt use: always do you feel safe at home: Yes 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 Sinus rhythm with frequent PVCs in a pattern of bigeminy. Incomplete right bundle branch block. Echo (EF%) pertinent findings: March 30, 2021. Ejection fraction 60%. No aortic stenosis noted. Recommendation Anesthesia Recommendation Anesthesia recommendation: F/U recommended (Patient has new finding of frequent PVCs in a pattern of bigeminy. This is new from 2020. Patient has not had any cardiac follow-up since 2020. Please have her follow-up with cardiology.)
--- NOTE | 2024-08-11 10:07 | PAT.ANESEVAL ---
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 When Was Last Pacemaker Check QUESTION #4 FULL TEXT: You/Your Family Experience fever (hyperthermia) with Anesthesia Last Oral Intake Last Oral intake: Last Oral Intake NPO since Meds taken in AM with sips of water? 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 Has anyone observed you stop No 08/10/24 10:22 breathing during sleep? STOP Results Negative 08/10/24 10:22 QUESTION #5 FULL TEXT : Do you snore loudly (louder than talking or can be heard through closed doors)? 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 Specify any problems Hx of Preganancy in last 3 No 08/10/24 10:22 Months Nurse Filling Out Transfusion VCHRISTIN 08/10/24 10:22 & Questions: Date: 08/10/24 08/10/24 10:22 Time: 10:23 08/10/24 10:22 Patient unable to answer at this time (ie. 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: /Reproductive Hx- pit and auxiliaries supervisor Hx Now No 08/10/24 10:22 Gestational Age (in weeks): EDC: Hx Hx Para Hx Section SAB No 08/10/24 10:22 [facility] Medical History (Updated 08/10/24 @ 10:22 by Marcella Saavedra) Wears glasses Arthritis Restless legs Migraine headache History of IBS Non-smoker History of pain when walking History of edema History of stress test History of echocardiogram History of trigger finger Depression Home Medications ?Medication ?Instructions ?Recorded ?Last Taken ?Type desvenlafaxine succinate 25 mg 25 mg PO DAILY #30 TABLETS 03/29/24 Unknown Rx tablet,extended release 24 hr acetaminophen 500 mg tablet 1,000 mg PO Q6H PRN pain 08/10/24 Unknown History (Tylenol Extra Strength) tramadol 50 mg tablet 50 mg PO Q6H PRN PRN pain 08/10/24 Unknown History Allergy/AdvReac Type Severity Reaction Status Date / Time penicillin G Allergy Mild Other Verified 08/10/24 10:12 Sulfa (Sulfonamide Allergy Mild Other Verified 08/10/24 10:12 Antibiotics) Family History Mother Hypertension Aunt Breast cancer Surgical History (Updated 08/10/24 @ 10:22 by Marcella Saavedra) Hx of release of tendon History of bunionectomy History of carpal tunnel surgery Social History Smoking Status: Never smoker alcohol intake: never substance use type: does not use caffeine: Yes what type of physical activity do you participate in: walking seatbelt use: always do you feel safe at home: Yes 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 Sinus 08/10/24 16:34 rhythm with frequent PVCs in a pattern of bigeminy. Incomplete right bundle branch block. Echo Pertinent Findings Echo (EF%) pertinent findings March 30, 2021. Ejection 08/10/24 16:34 fraction 60%. No aortic stenosis noted. Recommendation Anesthesia Recommendation Anesthesia recommendation: OPTIMIZED for anesthesia
--- NOTE | 2024-08-11 13:18 | PAT.ANESEVAL ---
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 When Was Last Pacemaker Check QUESTION #4 FULL TEXT: You/Your Family Experience fever (hyperthermia) with Anesthesia Last Oral Intake Last Oral intake: Last Oral Intake NPO since Meds taken in AM with sips of water? 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 Has anyone observed you stop No 08/10/24 10:22 breathing during sleep? STOP Results Negative 08/10/24 10:22 QUESTION #5 FULL TEXT : Do you snore loudly (louder than talking or can be heard through closed doors)? 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 Specify any problems Hx of Preganancy in last 3 No 08/10/24 10:22 Months Nurse Filling Out Transfusion VCHRISTIN 08/10/24 10:22 & Questions: Date: 08/10/24 08/10/24 10:22 Time: 10:23 08/10/24 10:22 Patient unable to answer at this time (ie. confused, unrespo /Reproduction History /Reproductive History - kiln furniture saw tender: /Reproductive Hx- kiln furniture saw tender Hx Now No 08/10/24 10:22 Gestational Age (in weeks): EDC: Hx Hx Para Hx Section SAB No 08/10/24 10:22 [facility] Medical History (Updated 08/10/24 @ 10:22 by Marcella Saavedra) Wears glasses Arthritis Restless legs Migraine headache History of IBS Non-smoker History of pain when walking History of edema History of stress test History of echocardiogram History of trigger finger Depression Home Medications ?Medication ?Instructions ?Recorded ?Last Taken ?Type desvenlafaxine succinate 25 mg 25 mg PO DAILY #30 TABLETS 03/29/24 Unknown Rx tablet,extended release 24 hr acetaminophen 500 mg tablet 1,000 mg PO Q6H PRN pain 08/10/24 Unknown History (Tylenol Extra Strength) tramadol 50 mg tablet 50 mg PO Q6H PRN PRN pain 08/10/24 Unknown History Allergy/AdvReac Type Severity Reaction Status Date / Time penicillin G Allergy Mild Other Verified 08/10/24 10:12 Sulfa (Sulfonamide Allergy Mild Other Verified 08/10/24 10:12 Antibiotics) Family History Mother Hypertension Aunt Breast cancer Surgical History (Updated 08/10/24 @ 10:22 by Marcella Saavedra) Hx of release of tendon History of bunionectomy History of carpal tunnel surgery Social History Smoking Status: Never smoker alcohol intake: never substance use type: does not use caffeine: Yes what type of physical activity do you participate in: walking seatbelt use: always do you feel safe at home: Yes 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 Sinus 08/10/24 16:34 rhythm with frequent PVCs in a pattern of bigeminy. Incomplete right bundle branch block. Echo Pertinent Findings Echo (EF%) pertinent findings March 30, 2021. Ejection 08/10/24 16:34 fraction 60%. No aortic stenosis noted. Recommendation Anesthesia Recommendation Anesthesia recommendation: OPTIMIZED for anesthesia
--- NOTE | 2024-08-12 21:30 | PAT.ANE_ITS ---
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 When Was Last Pacemaker Check QUESTION #4 FULL TEXT: You/Your Family Experience fever (hyperthermia) with Anesthesia Last Oral Intake Last Oral intake: Last Oral Intake NPO since Meds taken in AM with sips of water? 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 - plumbers and top helpers: PONV - plumbers and top helpers Female Yes 08/10/24 10:22 HX of Motion Sickness Yes 08/10/24 10:22 HX of N/V After Surgery No 08/10/24 10:22 Non-Smoker Yes 08/10/24 10:22 Duration of Surgery greater Yes 08/10/24 10:22 than 60 minutes Number of Risk Factors 4 08/10/24 10:22 PONV Score Severe Risk 08/10/24 10:22 Height & Weight Height & Weight: Anesthesia: Height & Weight Height 5 ft 5 in 06/07/24 09:57 Respiratory Assessment Respiratory Assessment - plumbers and top helpers: Respiratory Tract Infection Hx - plumbers and top helpers Hx Respiratory Tract Infection No 08/10/24 10:22 STOP Sleep Apnea STOP Sleep Apnea - plumbers and top helpers: STOP Sleep Apnea - plumbers and top helpers Hx Hypertension No 08/10/24 10:22 Hx Sleep Apnea No 08/10/24 10:22 CPAP BIPAP Do you snore loudly (louder No 08/10/24 10:22 than talking or can be heard Do you often feel tired/ No 08/10/24 10:22 fatigued/ sleepy during daytime? Has anyone observed you stop No 08/10/24 10:22 breathing during sleep? STOP Results Negative 08/10/24 10:22 QUESTION #5 FULL TEXT : Do you snore loudly (louder than talking or can be heard through closed doors)? 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 Specify any problems Hx of Preganancy in last 3 No 08/10/24 10:22 Months Nurse Filling Out Transfusion VCHRISTIN 08/10/24 10:22 & Questions: Date: 08/10/24 08/10/24 10:22 Time: 10:23 08/10/24 10:22 Patient unable to answer at this time (ie. confused, unrespo /Reproduction History /Reproductive History - plumbers and top helpers: /Reproductive Hx- plumbers and top helpers Hx Now No 08/10/24 10:22 Gestational Age (in weeks): EDC: Hx Hx Para Hx Section SAB No 08/10/24 10:22 [facility] Medical History (Updated 08/10/24 @ 10:22 by Marcella Saavedra) Wears glasses Arthritis Restless legs Migraine headache History of IBS Non-smoker History of pain when walking History of edema History of stress test History of echocardiogram History of trigger finger Depression Home Medications ?Medication ?Instructions ?Recorded ?Last Taken ?Type desvenlafaxine succinate 25 mg 25 mg PO DAILY #30 TABL ETS 03/29/24 Unknown Rx tablet,extended release 24 hr acetaminophen 500 mg tablet 1,000 mg PO Q6H PRN pain 0 08/10/24 Unknown History (Tylenol Extra Strength) tramadol 50 mg tablet 50 mg PO Q6H PRN PRN pain Unknown History Allergy/AdvReac Type Severity Reaction Status Date / Time penicillin G Allergy Mild Other Verified 08/10/24 10:12 Sulfa (Sulfonamide Allergy Mild Other Verified 08/10/24 10:12 Antibiotics) Family History Mother Hypertension Aunt Breast cancer Surgical History (Updated 08/10/24 @ 10:22 by Marcella Saavedra) Hx of release of tendon History of bunionectomy History of carpal tunnel surgery Social History Smoking Status: Never smoker alcohol intake: never substance use type: does not use caffeine: Yes what type of physical activity do you participate in: walking seatbelt use: always do you feel safe at home: Yes 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 Sinus 08/10/24 16:34 rhythm with frequent PVCs in a pattern of bigeminy. Incomplete right bundle branch block. Echo Pertinent Findings Echo (EF%) pertinent findings March 30, 2021. Ejection 08/10/24 16:34 fraction 60%. No aortic stenosis noted. Pertinent Findings Additional pertinent findings: CT angiogram of the chest. On 05/30/2023.-Normal CTA chest examination.
--- NOTE | 2024-08-17 15:59 | PAT.ANE_ITS ---
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 When Was Last Pacemaker Check QUESTION #4 FULL TEXT: You/Your Family Experience fever (hyperthermia) with Anesthesia Last Oral Intake Last Oral intake: Last Oral Intake NPO since Meds taken in AM with sips of water? 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 Female Yes 08/10/24 10:22 HX of Motion Sickness Yes 08/10/24 10:22 HX of N/V After Surgery No 08/10/24 10:22 Non-Smoker Yes 08/10/24 10:22 Duration of Surgery greater Yes 08/10/24 10:22 than 60 minutes Number of Risk Factors 4 08/10/24 10:22 PONV Score Severe Risk 08/10/24 10:22 Height & Weight Height & Weight: Anesthesia: Height & Weight Height 5 ft 5 in 06/07/24 09:57 Respiratory Assessment Respiratory Assessment - profiling machine setup operator: Respiratory Tract Infection Hx - profiling machine setup operator Hx Respiratory Tract Infection No 08/10/24 10:22 STOP Sleep Apnea STOP Sleep Apnea - profiling machine setup operator: STOP Sleep Apnea - profiling machine setup operator Hx Hypertension No 08/10/24 10:22 Hx Sleep Apnea No 08/10/24 10:22 CPAP BIPAP Do you snore loudly (louder No 08/10/24 10:22 than talking or can be heard Do you often feel tired/ No 08/10/24 10:22 fatigued/ sleepy during daytime? Has anyone observed you stop No 08/10/24 10:22 breathing during sleep? STOP Results Negative 08/10/24 10:22 QUESTION #5 FULL TEXT : Do you snore loudly (louder than talking or can be heard through closed doors)? 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 Specify any problems Hx of Preganancy in last 3 No 08/10/24 10:22 Months Nurse Filling Out Transfusion VCHRISTIN 08/10/24 10:22 & Questions: Date: 08/10/24 08/10/24 10:22 Time: 10:23 08/10/24 10:22 Patient unable to answer at this time (ie. 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: /Reproductive Hx- profiling machine setup operator Hx Now No 08/10/24 10:22 Gestational Age (in weeks): EDC: Hx Hx Para Hx Section SAB No 08/10/24 10:22 [facility] Medical History (Updated 08/10/24 @ 10:22 by Marcella Saavedra) Wears glasses Arthritis Restless legs Migraine headache History of IBS Non-smoker History of pain when walking History of edema History of stress test History of echocardiogram History of trigger finger Depression Home Medications ?Medication ?Instructions ?Recorded ?Last Taken ?Type desvenlafaxine succinate 25 mg 25 mg PO DAILY #30 TABL ETS 03/29/24 Unknown Rx tablet,extended release 24 hr acetaminophen 500 mg tablet 1,000 mg PO Q6H PRN pain 0 08/10/24 Unknown History (Tylenol Extra Strength) tramadol 50 mg tablet 50 mg PO Q6H PRN PRN pain Unknown History Allergy/AdvReac Type Severity Reaction Status Date / Time penicillin G Allergy Mild Other Verified 08/10/24 10:12 Sulfa (Sulfonamide Allergy Mild Other Verified 08/10/24 10:12 Antibiotics) Family History Mother Hypertension Aunt Breast cancer Surgical History (Updated 08/10/24 @ 10:22 by Marcella Saavedra) Hx of release of tendon History of bunionectomy History of carpal tunnel surgery Social History Smoking Status: Never smoker alcohol intake: never substance use type: does not use caffeine: Yes what type of physical activity do you participate in: walking seatbelt use: always do you feel safe at home: Yes 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 Sinus 08/10/24 16:34 rhythm with frequent PVCs in a pattern of bigeminy. Incomplete right bundle branch block. Echo Pertinent Findings Echo (EF%) pertinent findings March 30, 2021. Ejection 08/10/24 16:34 fraction 60%. No aortic stenosis noted. Pertinent Findings Consult pertinent findings: August 16, 2024. 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 1. PVCs-patient does have a history of occasional palpitations. Not related to caffeine intake. No other cardiac complaints. Will get an 7-day event monitor. This does not need to be performed prior to left total knee surgery. 2. Preop cardiovascular exam-activity level equals 4 METS. Revised cardiac ris k score is 0. May move forward with upcoming surgery. Recommendation Anesthesia Recommendation Anesthesia recommendation: OPTIMIZED for anesthesia
[2024-08-19] VITALS (12 sets, daily range): BP systolic 118–149; BP diastolic 75–94; PULSE 62–70; RESP 12–16; TEMP 36.4–37.4; O2SAT 98–100; BMI 28.6
[2024-08-19] MEDS: 0.9% Normal Saline (1000mL) 1,000 ML 15 ML IV (12:32)
--- NOTE | 2024-08-19 12:48 | PCM.PRE.AN2 ---
ASA Classification* ASA Classification ASA Classification: 2 Assessment & Plan Anesthesia* Anesthesia Assessment Anesthesia Assessment: Discussed sedation and/or anesthesia options, risks, benefits, and alternatives with patient/parents/legal guardian/POA. Questions invited. The patient/parents/legal guardian/POA seems to understand and agrees to proceed with anesthesia plan. Reviewed the physical assessment, medical history, allergy history and patient home medications list prior to surgery/procedure/anesthetic and documented any changes. Performed airway and anesthesia risk assessments. Anesthesia Type Anesthesia Type: General History Source History Obtained from:: Patient, Chart and Significant Other (spouse and daughter) Anesthesia Focused Assessment* Temperature: 99.4 F Pulse Rate: 66 Blood Pressure: 118/84 Respiratory Rate: 16 Pulse Ox: 100 Oxygen Delivery Method: Room Air Airway Assessment Mouth opens: >3 cm Mallampati Score: II Teeth Condition: Intact Neck Range of motion (ROM): Full ROM Focused Labs Anesthesia Preop lab: CBC WBC 3.4 K/mm3 (4.4-11.0) L 08/06/24 09:08/06/24 RBC 4.47 M/mm3 (4.2-5.4) 08/06/24 09:24 08/06/24 Hgb 12.6 g/dL (12.0-15.0) 08/06/24 09:24 08/06/24 Hct 38.4 % (37-47) 08/06/24 09:24 08/06/24 Plt Count 294 K/mm3 (150-450) 08/06/24 09:24 08/06/24 CHEMISTRY Potassium 3.7 mmol/L (3.5-5.1) 08/06/24 09:24 08/06/24 Sodium 138 mmol/L (136-145) 08/06/24 09:24 08/06/24 BUN 17 mg/dL (7-18) 08/06/24 09:24 08/06/24 Creatinine 0.89 mg/dL (0.55-1.02) 08/06/24 09:24 08/06/24 Glucose 84 mg/dL (74-106) 08/06/24 09:24 08/06/24 COAG Pre-Assessment Diagnosis/Proposed Procedure Planned Operative Procedure(s): (L) Arthroscopy, Knee Partial Medial Menisectomy Anesthesia History 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 When Was Last Pacemaker Check QUESTION #4 FULL TEXT: You/Your Family Experience fever (hyperthermia) with Anesthesia Last Oral Intake Last Oral intake: Last Oral Intake NPO since 23:30 08/19/24 12:08 Meds taken in AM with sips of No 08/19/24 12:08 water? 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 - medical billing supervisor: PONV - medical billing supervisor Female Yes 08/10/24 10:22 HX of Motion Sickness Yes 08/10/24 10:22 HX of N/V After Surgery No 08/10/24 10:22 Non-Smoker Yes 08/10/24 10:22 Duration of Surgery greater Yes 08/10/24 10:22 than 60 minutes Number of Risk Factors 4 08/10/24 10:22 PONV Score Severe Risk 08/10/24 10:22 Height & Weight Height & Weight: Anesthesia: Height & Weight Height 5 ft 5 in 08/19/24 12:08 Weight: 78 kg 08/19/24 12:08 Body Mass Index (BMI) 28.6 08/19/24 12:08 Respiratory Assessment Respiratory Assessment - medical billing supervisor: Respiratory Tract Infection Hx - medical billing supervisor Hx Respiratory Tract Infection No 08/10/24 10:22 STOP Sleep Apnea STOP Sleep Apnea - medical billing supervisor: STOP Sleep Apnea - medical billing supervisor Hx Hypertension No 08/10/24 10:22 Hx Sleep Apnea No 08/10/24 10:22 CPAP BIPAP Do you snore loudly (louder No 08/10/24 10:22 than talking or can be heard Do you often feel tired/ No 08/10/24 10:22 fatigued/ sleepy during daytime? Has anyone observed you stop No 08/10/24 10:22 breathing during sleep? STOP Results Negative 08/10/24 10:22 QUESTION #5 FULL TEXT : Do you snore loudly (louder than talking or can be heard through closed doors)? 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 Specify any problems Hx of Preganancy in last 3 No 08/10/24 10:22 Months Nurse Filling Out Transfusion VCHRISTIN 08/10/24 10:22 & Questions: Date: 08/10/24 08/10/24 10:22 Time: 10:23 08/10/24 10:22 Patient unable to answer at this time (ie. confused, unrespo /Reproduction History /Reproductive History - medical billing supervisor: /Reproductive Hx- medical billing supervisor Hx Now No 08/10/24 10:22 Gestational Age (in weeks): EDC: Hx Hx Para Hx Section SAB No 08/10/24 10:22 Active Medications Active Medications: Current Medications Generic Name Dose Route Start Last Admin Trade Name Freq PRN Reason Stop Dose Admin Cefazolin Sodium 2 gm/ N/A 20 mls @ 400 mls/hr 08/19/24 13:40 IV 08/19/24 13:42 PREOP ONE Sodium Chloride 1,000 mls @ 15 mls/hr 08/19/24 12:00 08/19/24 12:32 IV 08/25/24 01:19 15 mls/hr .Q48H LITZY Administration Protocol [facility] Medical History (Updated 08/10/24 @ 10:22 by Marcella Saavedra) Wears glasses Arthritis Restless legs Migraine headache History of IBS Non-smoker History of pain when walking History of edema History of stress test History of echocardiogram History of trigger finger Depression Home Medications ?Medication ?Instructions ?Recorded ?Last Taken ?Type desvenlafaxine succinate 25 mg 25 mg PO DAILY #30 TABLETS 03/29/24 Unknown Rx tablet,extended release 24 hr acetaminophen 500 mg tablet 1,000 mg PO Q6H PRN pain 08/10/24 Unknown History (Tylenol Extra Strength) tramadol 50 mg tablet 50 mg PO Q6H PRN PRN pain 08/10/24 Unknown History Allergy/AdvReac Type Severity Reaction Status Date / Time penicillin G Allergy Mild Other Verified 08/10/24 10:12 Sulfa (Sulfonamide Allergy Mild Other Verified 08/10/24 10:12 Antibiotics) Family History Mother Hypertension Aunt Breast cancer Surgical History (Updated 08/10/24 @ 10:22 by Marcella Saavedra) Hx of release of tendon History of bunionectomy History of carpal tunnel surgery Social History Smoking Status: Never smoker alcohol intake: never substance use type: does not use caffeine: Yes what type of physical activity do you participate in: walking seatbelt use: always do you feel safe at home: Yes 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
[2024-08-19] MEDS: Cefazolin 2 GM in Syringe IV (13:46)
[2024-08-19] MEDS: Epinephrine (1 mg/ml) 1 MG/ML VIAL (13:54)
[2024-08-19] MEDS: Bupiv/Epi 0.25% 30 ML Vial (13:54)
--- NOTE | 2024-08-19 14:13 | OP.PCM_ITS ---
Operative Report (Standard) Operative Information Date of Procedure: 08/19/24 Pre-Operative Diagnosis: Left knee medial meniscus tear Post-Operative Diagnosis: 1. Left knee medial meniscus tear 2. Left knee lateral meniscus tear 3. Diffuse chondromalacia left knee Surgery/Procedure Performed: Left knee arthroscopic partial medial and lateral meniscectomy, chondroplasty signal operator linguist: No Type of Anesthesia: General RN Documented Start/Stop Times: Operation Date: 08/19/24 13:40 Case Time Into Pre-Op 08/19/24 11:55 Anesthesia Start 08/19/24 13:36 Into Room 08/19/24 13:36 Out of Pre-Op 08/19/24 13:36 Procedure Start Time: 13:54 Procedure Stop Time: 14:09 Select all DRAINS/GRAFTS/IMPLANTS that apply: None Estimated Blood Loss: 2 cc Specimen collected: No Description of surgery: Patient identified preoperative holding her by name, correct number, and date of . The operative extremity was marked. All questions were answered to the patient satisfaction. At time of his procedure, patient brought the operative suite positioned supine on standard operating table. All bony prominences well-padded. General anest hesia was administered and LMA was placed. A well-padded pneumatic tourniquet was applied to the operative upper thigh. An arthroscopic post was placed along the lateral aspect of the operative thigh. We prepped and draped the left lower extremity in normal, sterile peak fashion. We performed timeout with all parties in attendance in agreement with the side, site, operation be performed. 2 g Ancef was administered by anesthesia staff prior to tourniquet ablation. I then exsanguinated left lower extremity with Esmarch bandage. Tourniquet was inflated to 250 mmHg for approximately 10 minutes. Esmarch was removed. Standard anterolateral portal was then established 90 degrees of flexion. Blunt tipped trocar was used to enter the knee joint. Knee was filled with normal saline with epinephrine. Arthroscope was then introduced. Diagnostic arthroscopy of the patellofemoral joint demonstrated diffuse grade 3 cartilage, hypertrophic fat pad. Medial lateral gutter was unremarkable. Valgus stress was applied the knee to anterior the medial compartment with the knee in extension. Anterior medial portal was established under direct visualization. Medial compartment was then examined. Complex posterior horn medial meniscus tear was noted. Mild extrusion was also appreciated. Diffuse grade III chondromalacia was noted medial femoral condyle. Unstable chondral edges were debrided with arthroscopic shaver. Partial meniscectomy was performed the medial meniscus with combination of baskets and shaver to a stable rim of cartilage. Intercondylar notch was pristine with normal ACL and PCL. Lateral compartment was then entered. Varus stress was applied. Central third degenerative tearing was noted in the lateral meniscus. Partial lateral meniscectomy was performed arthroscopic shaver and baskets to a stable rim of meniscus. Lateral compartment cartilage demonstrated grade I-II chondromalacia diffusely. Fat pad was then debrided. Tourniquet was deflated. The knee was anesthetized with 30 cc total quarter percent bupivacaine with epinephrine. Portal sites were closed in interrupted [id number] fashion with 3-0 nylon suture. Bulky sterile compression system was applied. Patient was safely awoken the operative suite and extubated. She was transferred to his gurney and subsequent to PACU in stable condition. Postoperative plan: Weightbearing, range of motion as tolerated operative knee Follow-up in 2 weeks for suture removal Physical therapy to start at 2 weeks Multimodal pain management with opioid, NSAID and Tylenol Aspirin 81 mg for DVT prophylaxis x 2 weeks Ice and elevation. Surgical Findings: Medial and lateral meniscus tears, diffuse chondromalacia Complications Complications: No Admit VTE Documentation VTE Present on Admission: No VTE Mechan Device Prophylaxis: Thigh High ESEQUIEL Hose VTE Pharm Prophylaxis ordered?: Yes
--- NOTE | 2024-08-19 14:25 | PCM.POST.ANE ---
Anesthesia: Postop Eval I Current Vital Signs Temperature: 97.6 F Pulse Rate: 63 Blood Pressure: 120/85 Respiratory Rate: 14 Pulse Ox: 98 Oxygen Delivery Method: Nasal Cannula Oxygen Flow Rate (L/min): 3 Assessment Airway patent: Yes Spontaneous unlabored respirations: Yes Mental status: Awake nausea: No Vomiting: No Anesthesia Complication: No Fluid Hydration Crystalloid volume administer (ml): 500 Total IV fluid infused: 500 Progress Note Anesthesia document: Postop Eval 1 completed: Yes
--- NOTE | 2024-08-19 16:14 | POSTOPAN2_ITS ---
Anesthesia Postop Eval I Sum Postop Eval Completion status Anesthesia document: Postop Eval 1 completed: Yes Anesthesia Postop Eval I Summary Anesthesia Postop Eval I Summary: Anesthesia Postop Eval I: Assessment Summary Airway patent Yes 08/19/24 14:26 [email or web address] Spontaneous unlabored Yes 08/19/24 14:26 [email or web address] respirations Mental status Awake 08/19/24 14:26 [email or web address] nausea No 08/19/24 14:26 [email or web address] Vomiting No 08/19/24 14:26 [email or web address] Anesthesia Postop Eval I: Fluid Summary Crystalloid volume administer 500 08/19/24 14:26 [email or web address] (ml) Colloids volume administered ( ml) Blood Product volume administered (ml) Total IV fluid infused 500 08/19/24 14:26 [email or web address] Anesthesia Postop Eval I: Summary Notes Anesthesia Complication No 08/19/24 14:26 [email or web address] Anesthesia Complication Comment: Post-operative progress note Anesthesia: Postop Eval II Evaluation Mental status: Awake and Calm Pain Level: 0 nausea: No Vomiting: No Complications Anesthesia Complication: No
--- NOTE | 2024-08-19 16:14 | PCM.POSTANE2 ---
Anesthesia Postop Eval I Sum Postop Eval Completion status Anesthesia document: Postop Eval 1 completed: Yes Anesthesia Postop Eval I Summary Anesthesia Postop Eval I Summary: Anesthesia Postop Eval I: Assessment Summary Airway patent Yes 08/19/24 14:26 [email or web address] Spontaneous unlabored Yes 08/19/24 14:26 REGISTRATION [email or web address] respirations Mental status Awake 08/19/24 14:26 [email or web address] nausea No 08/19/24 14:26 REGISTRATION [email or web address] Vomiting No 08/19/24 14:26 [email or web address] Anesthesia Postop Eval I: Fluid Summary Crystalloid volume administer 500 08/19/24 14:26 REGISTRATION [email or web address] (ml) Colloids volume administered ( ml) Blood Product volume administered (ml) Total IV fluid infused 500 08/19/24 14:26 [email or web address] Anesthesia Postop Eval I: Summary Notes Anesthesia Complication No 08/19/24 14:26 [email or web address] Anesthesia Complication Comment: Post-operative progress note Anesthesia: Postop Eval II Evaluation Mental status: Awake and Calm Pain Level: 0 nausea: No Vomiting: No Complications Anesthesia Complication: No
== END 2024-08-19 16:30 | disposition home or self-care (01) ==
LOC: SDC 11:53 → AC 11:54
PROVIDERS: PCP Internal Medicine; Referring Provider Student in an Organized Health Care Education/Training Program; Visit Provider Student in an Organized Health Care Education/Training Program
PROC: (CPT 29870; principal; 2024-08-19 13:20)
DX: S83.232A Complex tear of medial meniscus, current injury, left knee, initial encounter (principal); S83.282A Other tear of lateral meniscus, current injury, left knee, initial encounter; M17.12 Unilateral primary osteoarthritis, left knee; M94.262 Chondromalacia, left knee; X58.XXXA Exposure to other specified factors, initial encounter; E66.3 Overweight; Z68.28 Body mass index [BMI] 28.0-28.9, adult; F32.A Depression, unspecified; Z88.2 Allergy status to sulfonamides; Z88.0 Allergy status to penicillin; Z79.899 Other long term (current) drug therapy
CPT/HCPCS: 29880; 01400; 36415; 80048; 85025; 93005; J2405

== ENCOUNTER → 2024-09-03 | Outpatient (CLI) | payer MEDICARE, SELFPAY ==
--- NOTE | 2024-09-03 12:37 | VDLE_ITS ---
Reason For Study Reason For Study: Pain RIGHT LEFT CFV is compressible, spontaneous, phasic, competent GSV is normal. and demonstrates normal augmentation. CFV is compressible, spontaneous, phasic, competent, Procedure and demonstrates normal augmentation. This is a venous duplex using B-mode, color flow and FV is compressible, spontaneous, phasic, competent spectral Doppler. and demonstrates normal augmentation. Exam performed in department. POP V is compressible, spontaneous, phasic, competent A preliminary report was called and/or faxed to Shannon and demonstrates normal augmentation. PEGGY Morillo. T/P Trunk is compressible. PTV is compressible. LT PerV is compressible. Hypoechoic nonvascularized structure noted in the Popliteal fossa. VL/Venous Duplex US, Unilateral Interpretation Summary Deep veins of the left lower extremity are patent and compressible segmentally. There is no evidence of left lower extremity deep vein thrombosis. Valvular competence appears intact within the p roximal deep venous system on the left . The left great saphenous vein appears patent and compressible segmentally. A no n-vascular, hypoechoic structure is noted in the left popliteal space, measuring 2.49 cm x 1.21 cm. This may represent a popliteal cyst. Clinical correlation is advised. The right common femoral vein is patent and compressible . Ordering Physician: Shannon Morillo Referring Physician: Shannon Morillo Performed By: Jazmín Nevarez RVT and Student
== END | disposition home or self-care (01) ==
LOC: CVS 12:30
PROVIDERS: PCP Internal Medicine; Referring Provider Physician Assistant Surgical; Visit Provider Physician Assistant Surgical
DX: M79.605 Pain in left leg (principal); M25.462 Effusion, left knee
CPT/HCPCS: 93971

== ENCOUNTER 2024-11-30 10:00 | Outpatient (RCR) | payer MEDICARE, SELFPAY ==
--- NOTE | 2024-09-08 14:02 | HP.PTEVAL ---
Patient's Visit Information Visit Information Visit Information: KEMAL LANDRY is a 69 year old F referred to Physical Therapy by PEGGY Tracy with a diagnosis of COMPLEX TEAR OF MEDIAL TEAR MENISCUS ,LATERAL MENSISCUS TEAR. Date of Evaluation: 09/08/24 Physical Therapist: Nick Gar PT, Cert MDT, OCS Visit Plan Frequency: 2-3x /Week Duration: 4-6 Weeks Plan: *s/p Left knee arthroscopic partial medial and lateral meniscectomy, chondroplasty on 08/19/24* PT INTERVENTIONS ROM KNEE ,FLEXABILITY STRENGTHENING EX'S QUADS/HAMS/HIP ,FUNCTIONAL STRENGTHENING AND BIKE/NUSTEP Subjective Subjective: This 69 y/o female presents to physical therapy with s/p Left knee arthroscopic partial medial and lateral meniscectomy, chondroplasty on 08/19/24 at [facility] done by DR Trevino. Patient was d/c for crutches with WBAT ,then currently no device. Patient has had knee ~ 1 year . Then in April pain was worse then had MRI showed complex tear meniscus ,showed stress fx medial joint. Patient had x-rays mild DJD. Patient had US due to US burst. Patient feeling good . Aggravating factors stairs unable to squat and kneel. Alleviating factors ice. Patient denies paresthesia/tingling. Sleeping okay . Patient condition affects QOL and function. Patient goals to return to prior level of activity. HOBBIES: Ski ,yoga ,bike ,hike SOCIAL: Objective Objective: POSTURE: mild forward posture GAIT: reciprocal pattern PALAPTION: unremarkable EDEMA: absent AROM: 0-125 degrees supine flexion MMT: ( peak force) quads 25.9 ,hamstrings 17.8 ,hip abduction 18.9 ,hip flexion 21.9 FLEXABILITY: hamstrings WFL STAIRS: alternating with discomfort Balance/Special Test Scores Lower Extremity Functional Score: 38 Goals Goal 1:: Patient to be I with HEP for knee Goal Time Frame: 4-6 Weeks Goal 2:: Patient to improve LFES score by 5-10 points to improve QOL and function Goal Time Frame: 4-6 Weeks Goal 3:: Patient to improve AROM knee flexion by 130 degrees >for stairs Goal Time Frame: 4-6 Weeks Goal 4:: Patient to improve peak force quads/hams/hip by 5-10 # to improve gait and function Goal Time Frame: 4-6 Weeks Goal 5:: Patient to demonstrate 50% improvement with less pain and improve function Goal Time Frame: 4-6 Weeks Rehabilitation Potential Physical Therapy Diagnosis: This patient underwent s/p Left knee arthroscopic partial medial and lateral meniscectomy, chondroplasty on 08/19/24 Patient current impairments with decrease ROM ,weakness impair function and mobility Rehabilitation Potential: Good Anticipated Interventions Patient/Client Instruction: Educate patient on: Condition and Plan of Care For the Purpose of:: To decrease pain, To increase ROM, To improve muscle performance and motor function, To improve ability to perform ADL's, To increase tolerance to activity/condition/position, To improve ability of physical actions for home/community/work/leisure, To improve health of tissue, To decrease soft tissue restriction, To increase flexibility/ROM, To reduce risk of recurrence and To prevent re-injury Therapeutic Exercise to Include: Strength training, Balance training and Active ROM Comment: QUADS/HAMS/HIP For the Purpose of:: To decrease pain, To increase ROM, To improve muscle performance and motor function, To improve ability to perform ADL's, To increase tolerance to activity/condition/position, To improve ability of physical actions for home/community/work/leisure, To improve health of tissue, To decrease soft tissue restriction, To increase flexibility/ROM and To improve endurance Text: Thank you for the opportunity to evaluate your patient. For Medicare and Medicare HMO plans, please review the plan of care and approve it. It will need to be FAXED BACK to us at [phone] for Medicare purposes. For Medicare only, by signing this I certify the plan of care. Please let me know if there are questions or concerns regarding this plan of care. Physician Signature: Date:
--- NOTE | 2024-10-06 10:56 | HP.PTREVAL ---
Re-Evaluation Intro: PEGGY Tracy, It has been my pleasure to treat KEMAL LANDRY over the last 10 visits for COMPLEX TEAR OF MEDIAL TEAR MENISCUS ,LATERAL MENSISCUS TEAR LEFT. Please see the progress note below for an update on the physical therapy plan of care! Subjective Subjective: Doing well Objective Objective/Function: POSTURE: mild forward posture GAIT: reciprocal pattern PALAPTION: unremarkable EDEMA: absent AROM: 0-125 degrees supine flexion MMT: ( peak force) quads 43...9 ,hamstrings 43.8 ,hip abduction 23.9 ,hip flexion 38.1 FLEXABILITY: hamstrings WFL STAIRS: alternating with rail Plan Plan Plan: Progress to Gym program Independent *s/p Left knee arthroscopic partial medial and lateral meniscectomy, chondroplasty on 08/19/24* PT INTERVENTIONS ROM KNEE ,FLEXABILITY, STRENGTHENING EX'S QUADS/HAMS/HIP ,FUNCTIONAL STRENGTHENING AND BIKE/NUSTEP Balance/Gait/Functional tests Balance/Special Test Scores Lower Extremity Functional Score: 45 Goals Goals Goal 1:: Patient to be I with HEP for knee and gym Goal Time Frame: 4-6 Weeks Goal Progress: Progressing Goal 2:: Patient to improve LFES score by 5-10 points to improve QOL and function( new goal) Goal Time Frame: 4-6 Weeks Goal 3:: Patient to improve AROM knee flexion by 130 degrees >for stairs Goal Time Frame: 4-6 Weeks Goal Progress: Goal Met Goal 4:: Patient to improve peak force quads/hams/hip by 5-10 # to improve gait and function( new goal) Goal Time Frame: 4-6 Weeks Goal 5:: Patient to demonstrate 80% improvement with less pain and improve function( new gaol) Goal Time Frame: 4-6 Weeks Anticipated Interventions Anticipated Interventions Patient/Client Instruction: Educate patient on: Condition and Plan of Care For the Purpose of:: To decrease pain, To increase ROM, To improve muscle performance and motor function, To improve ability to perform ADL's, To increase tolerance to activity/condition/position, To improve ability of physical actions for home/community/work/leisure, To improve health of tissue, To decrease soft tissue restriction, To increase flexibility/ROM, To reduce risk of recurrence and To prevent re-injury Therapeutic Exercise to Include: Strength training, Balance training and Active ROM Comment: QUADS/HAMS/HIP For the Purpose of:: To decrease pain, To increase ROM, To improve muscle performance and motor function, To improve ability to perform ADL's, To increase tolerance to activity/condition/position, To improve ability of physical actions for home/community/work/leisure, To improve health of tissue, To decrease soft tissue restriction, To increase flexibility/ROM and To improve endurance Re-Evaluation Ending Re-evaluation ending: Please do not hesitate to contact me at [phone] by phone or if you have questions or concerns regarding this new plan of care! Sincerely, Nick Gar, PT, Cert MDT, OCS
--- NOTE | 2024-11-30 10:47 | HP.PTDCSUM ---
Discharge Summary D/C summary: It has been my pleasure to treat KEMAL LANDRY referred by PEGGY Tracy, with the diagnosis of COMPLEX TEAR OF MEDIAL TEAR MENISCUS ,LATERAL MENSISCUS TEAR LEFT for a total of 18 visit(s). Discharge Date: 11/30/24 Please see the following information for a summary of their discharge status. Subjective Subjective: Doesn't need to RTD Certain things such as squats sore ,no problem with strairs Pain L: Pain Intensity (Out of 10): 0 Overall Improvement % Improvement: 70 Objective Objective/Function: POSTURE: mild forward posture GAIT: reciprocal pattern PALAPTION: unremarkable EDEMA: absent AROM: 0-130 degrees supine flexion MMT: ( peak force) quads 53.4 ,hamstrings 45.8 ,hip abduction 33.9 ,hip flexion 50.1 FLEXABILITY: hamstrings WFL STAIRS: alternating with rail Goals Goal 1:: Patient to be I with HEP for knee and gym Goal Progress: Goal Met Goal 2:: Patient to improve LFES score by 5-10 points to improve QOL and function( new goal) Goal Progress: Goal Met Goal 3:: Patient to improve AROM knee flexion by 130 degrees >for stairs Goal Progress: Goal Met Goal 4:: Patient to improve peak force quads/hams/hip by 5-10 # to improve gait and function( new goal) Goal Progress: Goal Met Goal 5:: Patient to demonstrate 80% improvement with less pain and improve function( new gaol) Goal Progress: Goal Met Plan Plan: D/C TO HEP AND GYM D/C Information Discharge Comments: HEP d/c sentence: If there are questions or concerns regarding this patient's physical therapy, please feel free to call me at [phone]. Thank you for the referral of this patient. Sincerely, Nick Gar, PT, Cert MDT, OCS Balance/Gait/Functional tests Balance/Special Test Scores Lower Extremity Functional Score: 47 Improvement % Improvement: 70
== END 2024-11-30 19:00 | disposition home or self-care (01) ==
LOC: PT 10:00
PROVIDERS: PCP Internal Medicine; Referring Provider Physician Assistant Surgical; Visit Provider Physician Assistant Surgical
DX: S83.232D Complex tear of medial meniscus, current injury, left knee, subsequent encounter (principal); S83.282D Other tear of lateral meniscus, current injury, left knee, subsequent encounter
CPT/HCPCS: 97110; 97162; 97530

== ENCOUNTER → 2025-03-18 | Outpatient (CLI) | payer MEDICARE, SELFPAY ==
--- NOTE | 2025-03-18 14:16 | RAD_ITS ---
PROCEDURE: CHEST PA AND LATERAL 03/18/2025 REASON FOR EXAM: COUGH TECHNIQUE: Procedure Code: RADCXR Modality: DX Procedure: CHEST PA AND LATERAL COMPARISON: May 30 FINDINGS: Hardware: None Heart: Normal Mediastinum: Normal Lungs: Clear Bones: The bones are unremarkable. RAD/Chest PA and Lateral IMPRESSION: No acute abnormality Reading Location: [id number]
== END | disposition home or self-care (01) ==
LOC: MTRAD 14:16
PROVIDERS: PCP Internal Medicine; Referring Provider Physician Assistant Surgical; Visit Provider Physician Assistant Surgical
DX: R05.9 Cough, unspecified (principal)
CPT/HCPCS: 71046

== ENCOUNTER → 2025-03-22 | Outpatient (CLI) | payer MEDICARE, SELFPAY ==
--- NOTE | 2025-03-22 13:00 | BD_ITS ---
PROCEDURE: DEXA BONE DENSITY STUDY 03/22/2025 REASON FOR EXAM: OSTEOPENIA F, age 69 y/o . Postmenopausal. TECHNIQUE: Procedure Code: BDDBD Modality: DX Procedure: DEXA BONE DENSITY STUDY COMPARISON: None FINDINGS: BMD and T-SCORES Lumbar spine: 0.773 g/cm2, T-score -2.2 Levels: L1 through L3 Left femoral neck: 0.584 g/cm2, T-score -2.4 Left total hip: 0.675 g/cm2, T-score -2.2 Right femoral neck: 0.598 g/cm2, T-score -2.3 Right total hip: 0.665 g/cm2, T-score -2.3 The World Health Organization has defined the following categories based on bone density: Normal bone density: T-score equal to or greater than -1.0 Osteopenia: T-score between -1.0 and -2.5 Osteoporosis: T-score equal to or less than -2.5 FRAX (or Comparable) Fracture Risk Assessment: 10 Year Probability of Fracture: Major Osteoporotic Fracture: 14% Hip Fracture: 3.2% (Note: FRAX is not to be reported in setting of normal range bone density, osteoporosis on DEXA, known history of osteoporosis, prior osteoporotic hip or vertebral fracture, or for any patient undergoing pharmacological treatment for bone loss.) The National Osteoporosis Foundation (NOF) recommends pharmacological treatment for patients with a FRAX 10-year risk of 3% or higher for a hip fracture, or 20% or higher for a major osteoporotic fracture, to prevent osteoporosis and reduce fracture risk. The patient does meet the pharmacological treatment recommendations for prevention of osteoporosis. BD/Dexa Bone Density Study IMPRESSION: OSTEOPENIA. Recommend follow-up as clinically warranted. Reading Location: [id number]
--- NOTE | 2025-03-22 13:30 | BI_ITS ---
EXAM: SCRN MAMM (CAD)W/REED BILAT DATE: 03/22/2025 CLINICAL HISTORY: F, Age 69 y/o , SCREENING MAMMOGRAM Aunt with breast cancer. TECHNIQUE: Procedure Code: [id number] Modality: MG Procedure: SCRN MAMM (CAD)W/REED BILAT COMPARISON: Prior exam(s) dated March 02, 2024.. FINDINGS: TISSUE DENSITY: There are scattered areas of fibroglandular density. Bilateral Breast Mammographic Findings: No significant masses, calcifications or other abnormalities are identified. Stable asymmetry of breast tissue were more breast tissue is seen in the upper-outer quadrant of the right breast as compared to the left side. Stable small benign-appearing bilateral axillary lymph nodes. No suspicious masses, areas of developing architectural distortion, or suspicious calcifications. There has been no significant interval change. BI/SCRN MAMM (CAD)W/REED BILAT IMPRESSION: Stable bilateral screening mammogram. OVERALL FINAL ASSESSMENT BI-RADS 2: BENIGN RECOMMENDATION: Routine annual follow-up in 1 Year Additional Recommendation none A letter with findings and recommendations will be mailed to the patient. Reading Location: [place] [id number]
== END | disposition home or self-care (01) ==
LOC: OPBD 12:45
PROVIDERS: PCP Internal Medicine; Referring Provider Obstetrics & Gynecology; Visit Provider Obstetrics & Gynecology
DX: Z12.31 Encounter for screening mammogram for malignant neoplasm of breast (principal); Z78.0 Asymptomatic menopausal state; M85.80 Other specified disorders of bone density and structure, unspecified site
CPT/HCPCS: 77063; 77067; 77080